=== PATIENT | male | born 1965 | race Caucasian/White ===

== ENCOUNTER 2020-03-14 20:21 | Inpatient (IN) | payer OTHER ==
[~2020-03-14] VITALS: Ht 195.6 cm; Wt 126.9 kg
[2020-03-14 21:33] LABS: Basophils # (auto) 0 10 ^3/uL (0-0.2); Basophils % (auto) 0.7 % (0.0-2.0); Eosinophils # (auto) 0 10 ^3/uL (0-0.8); Hematocrit 47.9 % (41.0-53.0); Hemoglobin 16.2 g/dL (13.5-17.5); Lymphocytes # (auto) 0.6 10 ^3/uL (0.4-5.4); Lymphocytes % (auto) 10.9 % (10.0-50.0); Mean Corpuscular Hemoglobin 29.6 pg (28.0-32.0); Mean Corpuscular Hgb Conc. 33.9 g/dL (32.0-36.0); Mean Corpuscular Volume 87.3 fL (80.0-100.0); Monocytes # (auto) 0.3 10 ^3/uL (0-1.3); Neutrophils # (auto) 4.2 10 ^3/uL (1.6-8.6); Neutrophils % (auto) 83.4 % (37.0-80.0); Platelet Count (auto) 153 10^3/uL (140-450); Red Blood Cells 5.49 10^6/uL (4.5-5.90); Red Cell Distribution Width 14.6 % (11.8-14.3); White Blood Cell 5.1 10^3/uL (4.4-10.8)
[2020-03-14 21:44] LABS: Albumin 3.1 g/dL (3.4-5.0); Calcium 8.6 mg/dL (8.5-10.1); Potassium 3.4 mmol/L (3.5-5.1)
[2020-03-14 21:48] LABS: BUN/Creatinine Ratio 10.4; Bilirubin, Total 0.7 mg/dL (0.2-1.0); Total Protein 8.1 g/dL (6.4-8.2)
[2020-03-14 23:35] LABS: INR 1.08 (0.9-1.15)
[2020-03-14 23:47] LABS: Lactic Acid w/Reflex 2.4 mmol/L (0.4-2.0)
[2020-03-15] VITALS (7 sets, daily range): BP systolic 94–138; BP diastolic 53–86
[2020-03-15] MEDS ORDERED: levoFLOXacin 750MG 150 ML IV ONE
[2020-03-15] MEDS ORDERED: ACETAMINOPHEN 325 MG TAB PO ONE ×2 (01:45)
[2020-03-15] MEDS ORDERED: NITROGLYCERIN 0.4 MG SL TAB SL PRN (02:30)
[2020-03-15] MEDS ORDERED: ACETAMINOPHEN 325 MG TAB PO PRN (02:30)
[2020-03-15] MEDS ORDERED: MORPHINE SULF INJ 2 MG/ML SYRINGE 1ML IV PRN (02:30)
[2020-03-15] MEDS ORDERED: SODIUM CHLORIDE 0.9% 1,000 ML IV SCH (02:30)
[2020-03-15] MEDS ORDERED: TEMAZEPAM 15 MG CAP PO PRN (02:30)
[2020-03-15] MEDS ORDERED: ONDANSETRON HCL 4 MG/2 ML VIAL IV PRN (02:30)
[2020-03-15] MEDS ORDERED: DEXTROSE (50%) 50ML SYRG IV PRN (02:30)
[2020-03-15] MEDS ORDERED: POTASSIUM CHL 20 Meq TABLET PO ONE (02:30)
[2020-03-15 03:09] LABS: Magnesium 2.2 mg/dL (1.6-2.6)
[2020-03-15 03:17] LABS: CRP High Sensitivity 8.54 mg/dL (< 0.3)
[2020-03-15] MEDS ORDERED: METO-159 PO (05:35)
[2020-03-15] MEDS ORDERED: METF-370 PO (05:35)
[2020-03-15] MEDS: ACCU-CHEK COMFORT CURVE STRIP VI SCH ×4 (06:00→23:32)
[2020-03-15] MEDS: InsuLIN REG 1unit/0.01ml Soln (100units/ml) SC SCH ×4 (06:43→23:22)
[2020-03-15] MEDS: ALBUTEROL SULF HFA 90MCG INH 200DOSE IN SCH ×3 (08:25→22:29)
[2020-03-15] MEDS: DOXYCYCLINE 100MG/250ML 250 ML IV SCH ×2 (10:47→22:56)
[2020-03-15] MEDS: DexAMETHasone SOD PHOS 10MG/1ML VIAL INJ IV SCH (10:47)
[2020-03-15] MEDS: ZINC SULFATE 220mg CAP or TAB PO SCH (10:48)
[2020-03-15] MEDS: ASCORBIC ACID 1,000 MG TAB PO SCH (10:48)
[2020-03-15] MEDS: FAMOTIDINE 20 MG TAB PO SCH ×2 (10:48→22:57)
[2020-03-15] MEDS: CHOLECALCIFEROL (VITD3) 2,000 UNIT CAP PO SCH (10:49)
[2020-03-15] MEDS: ENOXAPARIN SOD 40 MG/0.4 ML SYRINGE SC SCH (10:49)
[2020-03-16 05:00] VITALS: BP 115/66
[2020-03-16] MEDS: ACCU-CHEK COMFORT CURVE STRIP VI SCH ×3 (06:00→18:02)
[2020-03-16 06:42] LABS: Basophils # (auto) 0 10 ^3/uL (0-0.2); Basophils % (auto) 0.7 % (0.0-2.0); Eosinophils # (auto) 0 10 ^3/uL (0-0.8); Hematocrit 45.2 % (41.0-53.0); Hemoglobin 15.2 g/dL (13.5-17.5); Lymphocytes # (auto) 1.2 10 ^3/uL (0.4-5.4); Lymphocytes % (auto) 24.3 % (10.0-50.0); Mean Corpuscular Hemoglobin 29.3 pg (28.0-32.0); Mean Corpuscular Hgb Conc. 33.8 g/dL (32.0-36.0); Mean Corpuscular Volume 86.7 fL (80.0-100.0); Monocytes # (auto) 0.3 10 ^3/uL (0-1.3); Monocytes % (auto) 6.7 % (0.0-12.0); Neutrophils # (auto) 3.2 10 ^3/uL (1.6-8.6); Neutrophils % (auto) 68.3 % (37.0-80.0); Nucleated Red Blood Cells % 0.1 %; Platelet Count (auto) 145 10^3/uL (140-450); Red Blood Cells 5.21 10^6/uL (4.5-5.90); Red Cell Distribution Width 14.5 % (11.8-14.3); White Blood Cell 4.7 10^3/uL (4.4-10.8)
[2020-03-16] MEDS: InsuLIN REG 1unit/0.01ml Soln (100units/ml) SC SCH ×3 (06:51→18:03)
[2020-03-16 07:01] LABS: Potassium 3.2 mmol/L (3.5-5.1)
[2020-03-16 07:27] LABS: Albumin 2.8 g/dL (3.4-5.0); BUN/Creatinine Ratio 12.9; Bilirubin, Total 0.5 mg/dL (0.2-1.0); CRP High Sensitivity 6.54 mg/dL (< 0.3); Calcium 8.3 mg/dL (8.5-10.1); Magnesium 2.2 mg/dL (1.6-2.6); Total Protein 7.1 g/dL (6.4-8.2)
[2020-03-16 09:00] VITALS: BP 96/57
[2020-03-16] MEDS: ALBUTEROL SULF HFA 90MCG INH 200DOSE IN SCH ×3 (09:46→22:00)
[2020-03-16] MEDS: DOXYCYCLINE 100MG/250ML 250 ML IV SCH ×2 (10:20→22:43)
[2020-03-16] MEDS: DexAMETHasone SOD PHOS 10MG/1ML VIAL INJ IV SCH (10:20)
[2020-03-16] MEDS: AZITHROMYCIN 500MG/ 250ML 250 ML IV SCH (10:21)
[2020-03-16] MEDS: FAMOTIDINE 20 MG TAB PO SCH ×2 (10:21→22:43)
[2020-03-16] MEDS: ASCORBIC ACID 1,000 MG TAB PO SCH (10:21)
[2020-03-16] MEDS: ZINC SULFATE 220mg CAP or TAB PO SCH (10:21)
[2020-03-16] MEDS: CHOLECALCIFEROL (VITD3) 2,000 UNIT CAP PO SCH (10:22)
[2020-03-16] MEDS: ENOXAPARIN SOD 40 MG/0.4 ML SYRINGE SC SCH (10:22)
[2020-03-16 13:01] VITALS: BP 118/71
[2020-03-16 17:00] VITALS: BP 133/79
[2020-03-16] MEDS ORDERED: IOHEXOL 350 MG/ML 100ML IJ ONE (18:11)
[2020-03-16 22:08] VITALS: BP 114/65
[2020-03-17] MEDS: InsuLIN REG 1unit/0.01ml Soln (100units/ml) SC SCH ×4 (00:05→17:26)
[2020-03-17] MEDS: ACCU-CHEK COMFORT CURVE STRIP VI SCH ×4 (00:10→17:23)
[2020-03-17 05:50] VITALS: BP 143/88
[2020-03-17] MEDS ORDERED: IOHEXOL 350 MG/ML 100ML IJ ONE (07:12)
[2020-03-17] MEDS: ALBUTEROL SULF HFA 90MCG INH 200DOSE IN SCH ×2 (07:51→13:53)
[2020-03-17 08:43] VITALS: BP 99/63
[2020-03-17] MEDS ORDERED: ASPirin 81 mg TAB PO SCH (10:00)
[2020-03-17] MEDS: DOXYCYCLINE 100MG/250ML 250 ML IV SCH (10:04)
[2020-03-17] MEDS: AZITHROMYCIN 500MG/ 250ML 250 ML IV SCH (10:04)
[2020-03-17] MEDS: DexAMETHasone SOD PHOS 10MG/1ML VIAL INJ IV SCH (10:04)
[2020-03-17] MEDS: ZINC SULFATE 220mg CAP or TAB PO SCH (10:05)
[2020-03-17] MEDS: FAMOTIDINE 20 MG TAB PO SCH (10:05)
[2020-03-17] MEDS: ENOXAPARIN SOD 40 MG/0.4 ML SYRINGE SC SCH (10:06)
[2020-03-17] MEDS: CHOLECALCIFEROL (VITD3) 2,000 UNIT CAP PO SCH (10:06)
[2020-03-17] MEDS: ASCORBIC ACID 1,000 MG TAB PO SCH (10:06)
[2020-03-17 13:22] VITALS: BP 144/94
== END 2020-03-17 18:56 | disposition home or self-care (01) | DRG 177 ==
LOC: EDBD 20:21 → ER 20:27 → TELE-EAST 20:28
PROVIDERS: ADMIT Nurse Practitioner; ATTEND Internal Medicine
DX: U07.1 COVID-19 (principal); J12.89 Other viral pneumonia; E87.6 Hypokalemia; E11.9 Type 2 diabetes mellitus without complications; I10 Essential (primary) hypertension; R09.02 Hypoxemia
CPT/HCPCS: 36415; 71045; 71275; 80053; 80061; 82728; 82962; 83605; 83615; 83735; 84443; 84484; 85025; 85379; 85610; 86141; 87040; 87426; 93005; 94640; 96361; 96365; 96375; G0378; J1100; J1815; J1956; J3490

== ENCOUNTER → 2024-05-04 | Outpatient (CLI) | payer MEDICAID ==
[~2024-05-04] VITALS: Ht 182.9 cm; Wt 122.5 kg
[~2024-05-04] MED LIST: CHOL20007 PO; DAPA1TAB4 PO; GABA-1250 PO; GLIM4TAB42 PO; LIDOCAINE 2%HCL (LOCAL ANESTH.) INJ 20ML MDV ONE; METF-370 PO; METO-159 PO; METO-289 PO; MIDAZOLAM HCL 2MG/2ML 2ml VIAL (1mg/ml) ONE; SODIUM TETRADECYL SULFATE IV ONE; TIZA4CAP PO; TRAM50TA2 PO; fentaNYL CITRATE 100 MCG/2 ML VL ONE
--- NOTE | 2024-05-04 09:53 | DVH ---
EXAM: XY CHEST PORTABLE Indication: Pain Technique: Single frontal view of the chest was obtained Comparison: CHEST PORTABLE on DOS: 03/16/20, CHEST XRAY 1 VIEW on DOS: 03/14/20 FINDINGS: Lines and Tubes: None Lungs: Pulmonary vascular congestion. Pleura: No effusion. No pneumothorax. Cardiomediastinal contours: Cardiomegaly. Bones: No acute osseous abnormality. IMPRESSION: Cardiomegaly with pulmonary vascular congestion.
[2024-05-04 10:21] LABS: Basophils # (auto) 0.1 10 ^3/uL (0-0.2); Basophils % (auto) 0.9 % (0.0-2.0); Eosinophils # (auto) 0.1 10 ^3/uL (0-0.8); Eosinophils % (auto) 1.6 % (0.0-7.0); Hematocrit 43.5 % (41.0-53.0); Hemoglobin 14.4 g/dL (13.5-17.5); Lymphocytes # (auto) 1.6 10 ^3/uL (0.4-5.4); Lymphocytes % (auto) 20.1 % (10.0-50.0); Mean Corpuscular Hemoglobin 28.9 pg (28.0-32.0); Mean Corpuscular Volume 87.7 fL (80.0-100.0); Monocytes # (auto) 0.4 10 ^3/uL (0-1.3); Monocytes % (auto) 5.2 % (0.0-12.0); Neutrophils # (auto) 5.7 10 ^3/uL (1.6-8.6); Neutrophils % (auto) 72.2 % (37.0-80.0); Nucleated Red Blood Cells % 0.1 %; Platelet Count (auto) 131 10^3/uL (140-450); Red Blood Cells 4.96 10^6/uL (4.5-5.90); Red Cell Distribution Width 14.2 % (11.8-14.3); White Blood Cell 7.9 10^3/uL (4.4-10.8)
[2024-05-04 10:32] LABS: Chloride 104 mmol/L (98-107); Potassium 4.3 mmol/L (3.5-5.1); Sodium 138 mmol/L (136-145)
[2024-05-04 10:33] LABS: Anion Gap 7 (5-15); Carbon Dioxide 27 mmol/L (20-31)
[2024-05-04 10:34] LABS: Calcium 9.8 mg/dL (8.7-10.4)
[2024-05-04 10:36] LABS: INR 1.07 (0.9-1.15); Partial Thromboplastin Time 29.3 SEC (24.5-34.5); Prothrombin Time 11.3 sec (9.3-11.8)
[2024-05-04 10:38] LABS: BUN/Creatinine Ratio 8.8 (10.0-20.0); Blood Urea Nitrogen 9 mg/dL (9-23); Glucose 346 mg/dL (74-106)
--- NOTE | 2024-05-04 14:32 | DVH ---
XY C ARM FLUOROSCOPY UP TO 60MIN, HISTORY: SPERMATICOMB. Swollen and painful testicle, scrotum with varicocele. PROCEDURE: Informed consent was obtained. On the day of the procedure, he was brought to the laborer prestressed concrete and placed on the fluoroscopic position in supine position. The right neck was prepped with chlorhe xidine which was allowed to dry and draped in usual sterile fashion. Time out was performed. IV sedat ion was administered. With real-time US guidance, the right IJV was accessed and a 7 Fr vascular renteria th placed, and an image documenting patency sent to PACS. The left renal vein was catheterized with a 5 Fr C2 and angled [place] catheter; hand injection venography was then performed with the patient per forming a Valsalva maneuver to try to visualize the gonadal vein orifice. Attempts were performed to select the left testicular vein that was unsuccessful. Contrast was injected to try to visualize amy tional venous anatomy. The left spermatic vein was unable to be cannalized. The catheter and sheath w ere then removed and hemostasis achieved with manual compression. No immediate complication was noted . DAP [id number] FLUOROSCOPY TIME: 23.7 minutes. CONTRAST USED: 90 mL . SEDATION: Dr. Cricket Espinoza was personally responsible for the administration of moderate sedation during the procedure performed, including the use of an independent trained observer who had no other duties during the procedure. The drugs utilized were IV fentanyl and versed (see nursing log for details). The total time of supervision by the attending physician was approximately 75 minutes. FINDINGS: Widely patent right IJV. The left gonadal vein is not well visualized and only the nubbin of the orif ice was able to be seen. Attempts to cannulate the left spermatic vein was unsuccessful possibly due to a competent valve. The embolization was not performed. CONCLUSION: The left gonadal vein is not well visualized and only the nubbin of the orifice was able to be seen. Attempts to cannulate the left spermatic vein was unsuccessful possibly due to a competent valve. The embolization was not performed. PLAN: Patient was instructed to return to Dr. Haskins for further evaluation and the events of the proced ure and lack of embolization was explained.
--- NOTE | 2024-05-17 11:06 | ECG ---
[facility] Test Date: 2024-05-04 Test Time: 08:55:02 Pat Name: MARIBELL CAVAZOS Department: Room: Gender: [employer] Analyst: Carlos CARTAGENA : 1965 Requested By: LISSA PFEIFFER Order Number: [id number] Reading MD: Josh Valdez Measurements Intervals [place] Rate: 60 P: 12 DC: 144 QRS: -16 QRSD: 84 T: -47 QT: 418 QTc: 418 Interpretive Statements Normal sinus rhythm Nonspecific T wave abnormality Electronically Signed On 05-17-2024 11:29:26 PST by Josh Valdez Please click the below link to view image of tracing.
== END | disposition home or self-care (01) ==
LOC: XYW 08:18
PROVIDERS: ATTEND Radiology Diagnostic Radiology
DX: I86.1 Scrotal varices (principal); I51.7 Cardiomegaly; N50.82 Scrotal pain; R07.9 Chest pain, unspecified; R09.89 Other specified symptoms and signs involving the circulatory and respiratory systems
CPT/HCPCS: 36012; 36415; 71045; 80048; 85025; 85610; 85730; 93005; C1887; C1894; J1644; J2250; J3010; J7040; 76000; 99152